=== PATIENT | male | born 1965 | race Two or more races ===

== ENCOUNTER → 2022-05-15 | Emergency (ER) | payer OTHER ==
[~2022-05-15] VITALS: Ht 172.7 cm; Wt 77.1 kg
[~2022-05-15] MED LIST: CT SWABBABLE VALVE TRANS SET 1 EA INFUS.SET MC ONE; IOHEXOL-300 100 ML VIAL IV ONE; IV NS 0.9% 1,000 ML IV ONE; IV NS 0.9% 250 ML IV ONE
--- NOTE | 2022-05-15 14:42 | NUR ---
The patient came to the emergency department for evaluation and treatment of left neck-lateral swelling x4 weeks Currently on high-dose Solu-Medrol p.o. dosing-being followed by ENT as an outpatient
--- NOTE | 2022-05-15 16:03 | NUR ---
iv line started blood drawn and sent to lab.
[2022-05-15 16:15] LABS: BASOPHILS % (AUTO) 0.2 % (0.0-2.0); EOSINOPHILS % (AUTO) 0.2 % (0.0-6.0); HEMATOCRIT 48 % (39-51); HEMOGLOBIN 15.8 g/dL (13.5-17.5); LYMPHOCYTES # (AUTO) 2.2 K/uL (0.8-4.8); LYMPHOCYTES % (AUTO) 19.4 % (20.0-44.0); MEAN CORPUSCULAR HGB CONC 33 g/dl (31.0-36.0); MEAN CORPUSCULAR VOLUME 89 fL (80-96); MONOCYTES # (AUTO) 0.8 K/uL (0.1-1.30); MONOCYTES % (AUTO) 7.4 % (2.0-12.0); NEUTROPHILS # (AUTO) 8.3 K/uL (1.8-8.9); NEUTROPHILS % (AUTO) 72.8 % (43.0-81.0); PLATELET COUNT (AUTO) 248 K/uL (150-450); WHITE BLOOD COUNT (AUTO) 11.4 K/uL (4.3-11.0)
[2022-05-15 16:30] LABS: POTASSIUM 4.2 mmol/L (3.5-5.1)
[2022-05-15 17:20] VITALS: BP 133/83
== END | disposition home or self-care (01) ==
LOC: ER 14:03
DX: R22.1 Localized swelling, mass and lump, neck (principal); I10 Essential (primary) hypertension
CPT/HCPCS: 99285; 96360; 70491; 85025; 80048; 36415; J7030; J7050; Q9967

== ENCOUNTER 2022-12-15 15:17 | Emergency (ER) | payer OTHER ==
[~2022-12-15] VITALS: Ht 177.8 cm; Wt 79.4 kg
--- NOTE | 2022-12-15 16:09 | NUR ---
PT IN BED 7, A/O X4 BREATHING IS EVEN AND UNLABORED. C/O SWELLING BILATERALLY SENT BY PRIMARY TO GET US DOPPLER STUDY TO RULE OUT DVT. PT CHANGED INTO GOWN AWAITING STUDY.
--- NOTE | 2022-12-15 16:25 | NUR ---
US TECH TOOK STUDY AWAITING RADIOLOGIST READING
[2022-12-15 17:32] VITALS: BP 142/84
== END 2022-12-15 17:42 | disposition home or self-care (01) ==
LOC: ER 15:27
DX: G89.18 Other acute postprocedural pain (principal); M25.552 Pain in left hip; M79.89 Other specified soft tissue disorders; I10 Essential (primary) hypertension; Z88.8 Allergy status to other drugs, medicaments and biological substances
CPT/HCPCS: 93971-TC